=== PATIENT | male | born 1960 | race Caucasian/White ===

== ENCOUNTER 2016-11-13 00:35 | Emergency (ER) | payer SELFPAY ==
[~2016-11-13] VITALS: Ht 167.6 cm; Wt 70.5 kg
[2016-11-13 00:45] VITALS: BP 172/111; PULSE 117; TEMP 98.4
[2016-11-13] MEDS ORDERED: TOPROL XL 50MG50 MG PO (01:10)
[2016-11-13] MEDS ORDERED: ULTRAM 50MG TAB50 MG PO (01:24)
[2016-11-13] MEDS ORDERED: PEN-VEE K500 MG PO (01:24)
== END 2016-11-13 01:33 | disposition home or self-care (01) ==
LOC: COL.ER 00:35
DX: K08.89 Other specified disorders of teeth and supporting structures (principal); K05.30 Chronic periodontitis, unspecified; I11.0 Hypertensive heart disease with heart failure; I50.9 Heart failure, unspecified; J44.9 Chronic obstructive pulmonary disease, unspecified; F17.200 Nicotine dependence, unspecified, uncomplicated

== ENCOUNTER 2016-11-16 12:04 | Observation (INO) | payer SELFPAY ==
[~2016-11-16] VITALS: Ht 167.6 cm; Wt 76.2 kg
[2016-11-16] VITALS (481 sets, daily range): BP systolic 126–147; BP diastolic 72–101; PULSE 87–102; TEMP 97–97.5; O2SAT 95–100
[~2016-11-16 12:04] MED LIST: PEN-VEE K500 MG PO; TOPROL XL 50MG50 MG PO; ULTRAM 50MG TAB50 MG PO
[2016-11-16 12:31] LABS: BASO % 0.2 % (0.0-2.0); EOS # 0.1 (0.0-0.7); GRAN # 9.2 (1.4-6.5); GRAN % 74.9 % (42.2-75.2); HEMOGLOBIN 14.3 g/dl (13.5-18.0); LYMPH # 2.2 (1.2-3.4); LYMPH % 17.8 % (20.0-51.0); MEAN CELL VOLUME 92 fl (80.0-100.0); MEAN CORPUSCULAR HEMOGLOBIN 30 pg (27.0-31.0); MEAN CORPUSCULAR HGB CONC 33 g/dl (33.0-37.0); MEAN PLATELET VOLUME 9.4 fl (7.4-10.4); MONO # 0.7 (0.1-0.6); MONO % 5.8 % (1.7-9.3); PLATELET COUNT 449 K/mm3 (130-400); REDCELL DISTRIBUTION WIDTH-CV 14.7 % (11.5-14.5); WHITE BLOOD COUNT 12.3 K/mm3 (4.8-10.8)
[2016-11-16 12:40] LABS: PROTHROMBIN TIME 11.5 SECONDS (9.7-12.8)
[2016-11-16 12:42] LABS: PARTIAL THROMBOPLASTIN TIME 31.2 SECONDS (26.0-37.0)
[2016-11-16 12:47] LABS: ADJUSTED CALCIUM 9.2 mg/dL (8.4-10.2); ALBUMIN 4.1 gm/dL (3.5-5.0); BILIRUBIN,TOTAL 0.8 mg/dL (0.0-1.0); CALCIUM 9.3 mg/dL (8.4-10.2); CREATININE, serum 0.91 mg/dL (0.66-1.25); POTASSIUM 4.1 mmol/L (3.4-5.0)
[2016-11-16 13:03] LABS: TROPONIN-I 1.19 ng/mL (0.000-0.034)
[2016-11-16 21:47] LABS: INR 1.1 (0.8-3.0); PROTHROMBIN TIME 12.2 SECONDS (9.7-12.8)
[2016-11-16 21:50] LABS: PARTIAL THROMBOPLASTIN TIME 31.3 SECONDS (26.0-37.0)
[2016-11-17] VITALS (922 sets, daily range): BP systolic 122–133; BP diastolic 88–92; PULSE 86–94; TEMP 97.1–98.1; O2SAT 87–100
[2016-11-17 04:11] LABS: BASO % 0.2 % (0.0-2.0); EOS # 0.1 (0.0-0.7); EOS % 0.7 % (0-4.0); GRAN # 11.7 (1.4-6.5); GRAN % 79.8 % (42.2-75.2); LYMPH # 1.7 (1.2-3.4); LYMPH % 11.9 % (20.0-51.0); MEAN CELL VOLUME 91 fl (80.0-100.0); MEAN CORPUSCULAR HGB CONC 34 g/dl (33.0-37.0); MEAN PLATELET VOLUME 9.1 fl (7.4-10.4); MONO % 6.9 % (1.7-9.3); PLATELET COUNT 393 K/mm3 (130-400); RED BLOOD COUNT 3.97 M/mm3 (4.20-5.60); REDCELL DISTRIBUTION WIDTH-CV 14.8 % (11.5-14.5); WHITE BLOOD COUNT 14.7 K/mm3 (4.8-10.8)
[2016-11-17 04:12] LABS: HEMATOCRIT 36.3 % (42.0-52.0); HEMOGLOBIN 12.3 g/dl (13.5-18.0); MEAN CORPUSCULAR HEMOGLOBIN 31 pg (27.0-31.0)
[2016-11-17 04:54] LABS: CALCIUM 8.6 mg/dL (8.4-10.2); CREATININE, serum 0.77 mg/dL (0.66-1.25); MAGNESIUM 1.7 mg/dL (1.6-2.3)
[2016-11-17 05:22] LABS: TROPONIN-I 1.73 ng/mL (0.000-0.034)
[2016-11-17] MEDS ORDERED: LIPITOR20 MG PO (12:52)
[2016-11-17] MEDS ORDERED: ASPIRIN E.C. 8181 MG PO (12:53)
[2016-11-17] MEDS ORDERED: TOPROL XL 50MG50 MG PO (12:53)
[2016-11-17] MEDS ORDERED: ZESTRIL 20MG TA20 MG PO (12:53)
== END 2016-11-17 18:00 | disposition short-term general hospital (02) ==
LOC: COL.ER 12:04 → ICU 13:13
PROVIDERS: Emergency Medicine; Family Medicine; Internal Medicine Cardiovascular Disease
DX: I21.4 Non-ST elevation (NSTEMI) myocardial infarction (principal); T82.855A Stenosis of coronary artery stent, initial encounter; I50.20 Unspecified systolic (congestive) heart failure; Z91.14 Patient's other noncompliance with medication regimen; I25.10 Atherosclerotic heart disease of native coronary artery without angina pectoris; J44.9 Chronic obstructive pulmonary disease, unspecified; F17.210 Nicotine dependence, cigarettes, uncomplicated; I10 Essential (primary) hypertension; Z86.73 Personal history of transient ischemic attack (TIA), and cerebral infarction without residual deficits; E78.00 Pure hypercholesterolemia, unspecified; K02.9 Dental caries, unspecified
CPT/HCPCS: 99223-AI; 99233-AI; 99239; C1760; C1894; G0378; J0360; J1644; J2250; J2270; J2405; J3010; Q9967

== ENCOUNTER → 2017-04-13 | Outpatient (REF) ==
[~2017-04-13] MED LIST changes: +ASPIRIN E.C. 8181 MG PO; +LIPITOR20 MG PO; +ZESTRIL 20MG TA20 MG PO
[2017-04-13 19:56] LABS: CHLAMYDIA/TRACH by PCR Male NOT DETECTED; Neisseria Gon by PCR Male NOT DETECTED
== END ==
LOC: ZLAB.WCH 18:09
PROVIDERS: Physician Assistant
DX: Z01.89 Encounter for other specified special examinations (principal)

== ENCOUNTER 2017-12-13 14:34 | Inpatient (IN) | payer MEDICAID ==
[~2017-12-13] VITALS: Ht 167.6 cm; Wt 78.8 kg
[2017-12-13 15:04] LABS: BASO % 0.3 % (0.0-2.0); EOS # 0.3 (0.0-0.7); EOS % 2.6 % (0-4.0); GRAN # 7.2 (1.4-6.5); GRAN % 61.7 % (42.2-75.2); HEMATOCRIT 42.8 % (42.0-52.0); HEMOGLOBIN 14.6 g/dl (13.5-18.0); LYMPH # 3.2 (1.2-3.4); LYMPH % 27.1 % (20.0-51.0); MEAN CELL VOLUME 94 fl (80.0-100.0); MEAN CORPUSCULAR HEMOGLOBIN 32 pg (27.0-31.0); MEAN CORPUSCULAR HGB CONC 34 g/dl (33.0-37.0); MONO # 0.9 (0.1-0.6); MONO % 8.1 % (1.7-9.3); PLATELET COUNT 359 K/mm3 (130-400); RED BLOOD COUNT 4.54 M/mm3 (4.20-5.60); REDCELL DISTRIBUTION WIDTH-CV 12.9 % (11.5-14.5)
[2017-12-13 15:16] LABS: ALANINE AMINOTRANSFERASE 27 U/L (21-72); ALKALINE PHOSPHATASE 92 U/L (50-136); ANION GAP 12 mmol/L (7-16); AST,SGOT 21 U/L (15-37); BILIRUBIN,TOTAL 0.3 mg/dL (0.0-1.0); BLOOD UREA NITROGEN 18 mg/dL (9-20); CALCIUM 9.2 mg/dL (8.4-10.2); CARBON DIOXIDE 28 mmol/L (22-30); CHLORIDE 102 mmol/L (98-107); CREATININE, serum 1.09 mg/dL (0.66-1.25); GLUCOSE 141 mg/dL (74-106); SODIUM 142 mmol/L (137-145); TOTAL PROTEIN 7.7 gm/dL (6.4-8.2)
[2017-12-13 15:33] LABS: TROPONIN-I < 0.012 ng/mL (0.000-0.034)
[2017-12-13 16:22] LABS: INR 0.9 (0.8-3.0); PROTHROMBIN TIME 10.7 SECONDS (9.7-12.8)
[2017-12-13] MEDS ORDERED: PLAVIX 75MG TAB75 MG PO (17:22)
[2017-12-13] MEDS ORDERED: COREG12.5 MG PO (17:24)
[2017-12-13 18:25] VITALS: BP 146/79; PULSE 67; TEMP 97.7
[2017-12-13 19:41] VITALS: BP 126/79; PULSE 70; TEMP 97.8
[2017-12-14] VITALS (15 sets, daily range): BP systolic 126–158; BP diastolic 70–93; PULSE 66–94; TEMP 97.7–98.8
[2017-12-14 07:22] LABS: BASO % 0.2 % (0.0-2.0); EOS # 0.3 (0.0-0.7); EOS % 2.2 % (0-4.0); GRAN # 8.5 (1.4-6.5); GRAN % 63.5 % (42.2-75.2); HEMATOCRIT 37.8 % (42.0-52.0); HEMOGLOBIN 12.7 g/dl (13.5-18.0); LYMPH # 3.6 (1.2-3.4); MEAN CELL VOLUME 94 fl (80.0-100.0); MEAN CORPUSCULAR HEMOGLOBIN 32 pg (27.0-31.0); MEAN CORPUSCULAR HGB CONC 34 g/dl (33.0-37.0); MEAN PLATELET VOLUME 8.8 fl (7.4-10.4); MONO # 0.9 (0.1-0.6); MONO % 6.8 % (1.7-9.3); PLATELET COUNT 298 K/mm3 (130-400); RED BLOOD COUNT 4.02 M/mm3 (4.20-5.60); REDCELL DISTRIBUTION WIDTH-CV 13.1 % (11.5-14.5)
[2017-12-14 07:31] LABS: CALCIUM 8.4 mg/dL (8.4-10.2); CREATININE, serum 0.89 mg/dL (0.66-1.25); POTASSIUM 4.1 mmol/L (3.4-5.0)
[2017-12-15] VITALS: BP 127/77; PULSE 85; TEMP 98
[2017-12-15 04:24] VITALS: BP 142/71; PULSE 85; TEMP 97.5
[2017-12-15] MEDS ORDERED: PLAVIX 75MG TAB75 MG PO ×2 (07:37→09:12)
[2017-12-15] MEDS ORDERED: ASPIRIN E.C. 8181 MG PO (07:38)
[2017-12-15 07:42] VITALS: BP 129/76; PULSE 87; TEMP 97.7
[2017-12-15] MEDS ORDERED: LIPITOR 40MG TA40 MG PO (08:36)
[2017-12-15] MEDS ORDERED: COREG12.5 MG PO (08:45)
[2017-12-15] MEDS ORDERED: ZESTRIL 20MG TA20 MG PO (08:45)
== END 2017-12-15 11:35 | disposition home or self-care (01) | DRG 247 ==
LOC: COL.ER 14:34 → MEDICAL 17:26
PROVIDERS: Emergency Medicine; Nurse Practitioner
PROC: B2111ZZ Fluoroscopy of Multiple Coronary Arteries using Low Osmolar Contrast (ICD-10-PCS; principal; 2017-12-14)
PROC: 027034Z Dilation of Coronary Artery, One Artery with Drug-eluting Intraluminal Device, Percutaneous Approach (ICD-10-PCS; 2017-12-14)
PROC: 4A023N7 Measurement of Cardiac Sampling and Pressure, Left Heart, Percutaneous Approach (ICD-10-PCS; 2017-12-14)
DX: I25.110 Atherosclerotic heart disease of native coronary artery with unstable angina pectoris (principal); I50.22 Chronic systolic (congestive) heart failure; I11.0 Hypertensive heart disease with heart failure; I25.5 Ischemic cardiomyopathy; Z95.5 Presence of coronary angioplasty implant and graft; J44.9 Chronic obstructive pulmonary disease, unspecified; F17.210 Nicotine dependence, cigarettes, uncomplicated; Z91.14 Patient's other noncompliance with medication regimen; Z86.73 Personal history of transient ischemic attack (TIA), and cerebral infarction without residual deficits
CPT/HCPCS: 99222-AI; 99239; C1725; C1769; C1874; C1887; C9600; J0360; J1644; J2250; J3010; J7030

== ENCOUNTER 2017-12-15 19:27 | Emergency (ER) | payer MEDICAID ==
[~2017-12-15] VITALS: Ht 167.6 cm; Wt 72.7 kg
[~2017-12-15 19:27] MED LIST changes: +COREG12.5 MG PO; +LIPITOR 40MG TA40 MG PO; +PLAVIX 75MG TAB75 MG PO
[2017-12-15 19:32] VITALS: TEMP 98
[2017-12-15 19:54] LABS: BASO % 0.2 % (0.0-2.0); EOS # 0.3 (0.0-0.7); GRAN # 7.4 (1.4-6.5); GRAN % 58.3 % (42.2-75.2); HEMATOCRIT 41.2 % (42.0-52.0); HEMOGLOBIN 14.2 g/dl (13.5-18.0); MEAN CELL VOLUME 93 fl (80.0-100.0); MEAN CORPUSCULAR HEMOGLOBIN 32 pg (27.0-31.0); MEAN CORPUSCULAR HGB CONC 35 g/dl (33.0-37.0); MONO % 8.1 % (1.7-9.3); PLATELET COUNT 370 K/mm3 (130-400); RED BLOOD COUNT 4.42 M/mm3 (4.20-5.60); REDCELL DISTRIBUTION WIDTH-CV 13.1 % (11.5-14.5)
[2017-12-15 19:57] LABS: INR 0.9 (0.8-3.0); PROTHROMBIN TIME 10.6 SECONDS (9.7-12.8)
[2017-12-15 20:00] LABS: PARTIAL THROMBOPLASTIN TIME 38.8 SECONDS (26.0-37.0)
[2017-12-15 20:02] LABS: ALBUMIN 3.9 gm/dL (3.5-5.0); BILIRUBIN,TOTAL 0.4 mg/dL (0.0-1.0); CALCIUM 9.2 mg/dL (8.4-10.2); CREATININE, serum 1.05 mg/dL (0.66-1.25); POTASSIUM 4.1 mmol/L (3.4-5.0); TOTAL PROTEIN 7.6 gm/dL (6.4-8.2)
[2017-12-15 20:18] LABS: TROPONIN-I 0.289 ng/mL (0.000-0.034)
[2017-12-15 21:10] VITALS: BP 136/87; PULSE 85
== END 2017-12-15 21:21 | disposition other institution (70) ==
LOC: COL.ER 19:27
PROVIDERS: Emergency Medicine
DX: I24.9 Acute ischemic heart disease, unspecified (principal); E78.5 Hyperlipidemia, unspecified; I10 Essential (primary) hypertension; F17.210 Nicotine dependence, cigarettes, uncomplicated; Z95.5 Presence of coronary angioplasty implant and graft; Z79.82 Long term (current) use of aspirin; Z82.49 Family history of ischemic heart disease and other diseases of the circulatory system
CPT/HCPCS: J1644; J2405; J3010

== ENCOUNTER 2018-07-03 23:21 | Inpatient (IN) | payer MEDICAID ==
[~2018-07-03] VITALS: Ht 170.2 cm; Wt 81.2 kg
[2018-07-03 23:38] LABS: BASO # 0.1 (0.0-0.2); BASO % 0.3 % (0.0-2.0); EOS # 0.3 (0.0-0.7); EOS % 1.8 % (0-4.0); GRAN % 71.8 % (42.2-75.2); HEMATOCRIT 44.1 % (42.0-52.0); HEMOGLOBIN 14.7 g/dl (13.5-18.0); LYMPH # 2.7 (1.2-3.4); LYMPH % 17.9 % (20.0-51.0); MEAN CELL VOLUME 96 fl (80.0-100.0); MEAN CORPUSCULAR HEMOGLOBIN 32 pg (27.0-31.0); MEAN CORPUSCULAR HGB CONC 33 g/dl (33.0-37.0); MEAN PLATELET VOLUME 9.1 fl (7.4-10.4); MONO # 1.2 (0.1-0.6); MONO % 7.9 % (1.7-9.3); PLATELET COUNT 262 K/mm3 (130-400); RED BLOOD COUNT 4.59 M/mm3 (4.20-5.60); REDCELL DISTRIBUTION WIDTH-CV 13.4 % (11.5-14.5)
[2018-07-03 23:52] LABS: LACTIC ACID 1.7 mmol/L (0.4-2.0)
[2018-07-03 23:54] LABS: ALANINE AMINOTRANSFERASE 28 U/L (21-72); ALBUMIN 3.8 gm/dL (3.5-5.0); ALKALINE PHOSPHATASE 93 U/L (50-136); ANION GAP 7 mmol/L (7-16); AST,SGOT 21 U/L (15-37); BILIRUBIN,TOTAL 0.6 mg/dL (0.0-1.0); BLOOD UREA NITROGEN 17 mg/dL (9-20); CARBON DIOXIDE 29 mmol/L (22-30); CHLORIDE 102 mmol/L (98-107); CREATININE, serum 1.54 mg/dL (0.66-1.25); GLUCOSE 139 mg/dL (74-106); LIPASE 190 U/L (23-300); POTASSIUM 5.1 mmol/L (3.4-5.0); SODIUM 138 mmol/L (137-145); TOTAL PROTEIN 7.1 gm/dL (6.4-8.2)
[2018-07-03 23:58] LABS: ALCOHOL(ethanol),MEDICAL < 10 mg/dL
[2018-07-04] VITALS (924 sets, daily range): BP systolic 119–133; BP diastolic 60–85; PULSE 64–106; TEMP 97.4–98.6; O2SAT 89–100
[2018-07-04 00:04] LABS: TROPONIN-I 0.021 ng/mL (0.000-0.035)
[2018-07-04 00:25] LABS: COLLECTION METHOD CATHETER
[2018-07-04] MEDS ORDERED: LEXAPRO 10MG10 MG PO (00:29)
[2018-07-04] MEDS ORDERED: ZESTRIL30 MG PO (00:29)
[2018-07-04] MEDS ORDERED: NORVASC 5MG5 MG/TAB PO (00:30)
[2018-07-04] MEDS ORDERED: NITROSTAT0.4 MG/TAB SL (00:30)
[2018-07-04 00:40] LABS: MUCOUS Present /lpf; PH 5 (5-8); SQUAMOUS EPITHELIAL 0-2 /hpf; URINE APPEARANCE Cloudy; URINE BACTERIA None Seen /hpf; URINE BILIRUBIN Negative (NEGATIVE); URINE BLOOD 3+ (NEGATIVE); URINE COLOR Amber; URINE GLUCOSE Negative (NEGATIVE); URINE KETONE Negative (NEGATIVE); URINE LEUKOCYTE ESTERASE 1+ (NEGATIVE); URINE NITRATE Negative (NEGATIVE); URINE PROTEIN(semi-quant) 2+ (NEGATIVE); URINE RBC >50 /hpf
[2018-07-04 00:46] LABS: TRICYCLIC ANTIDEPRESS URINE POSITIVE
[2018-07-04] MEDS ORDERED: ALDACTONE 25MG25 M1 PO (02:09)
[2018-07-04] MEDS ORDERED: LASIX 40MG TABL40 MG PO (02:10)
[2018-07-04] MEDS ORDERED: ASPIRIN E.C. 8181 MG PO (02:15)
[2018-07-04 05:17] LABS: ACETAMINOPHEN < 10 ug/mL (10-30); SALICYLATE < 1.0 mg/dL
[2018-07-04 07:04] LABS: BASO % 0.3 % (0.0-2.0); EOS # 0.2 (0.0-0.7); EOS % 1.5 % (0-4.0); GRAN # 7.5 (1.4-6.5); GRAN % 63.2 % (42.2-75.2); HEMATOCRIT 39.6 % (42.0-52.0); HEMOGLOBIN 13.2 g/dl (13.5-18.0); LYMPH # 3.2 (1.2-3.4); LYMPH % 27.5 % (20.0-51.0); MEAN CELL VOLUME 95 fl (80.0-100.0); MEAN CORPUSCULAR HEMOGLOBIN 32 pg (27.0-31.0); MEAN CORPUSCULAR HGB CONC 33 g/dl (33.0-37.0); MONO # 0.9 (0.1-0.6); MONO % 7.2 % (1.7-9.3); PLATELET COUNT 217 K/mm3 (130-400); RED BLOOD COUNT 4.16 M/mm3 (4.20-5.60); REDCELL DISTRIBUTION WIDTH-CV 13.5 % (11.5-14.5)
--- NOTE | 2018-07-04 07:14 | NUR ---
0225 - RECEIVED REPORT FROM PATRICK CHAPARRO. 0240 - PT ARRIVED IN UNIT VIA STRETCHER, ABLE TO SCOOT HIMSELF FROM STRETCHER TO BED. ALERT AND ORIENTED X3, JUST CONFUSED OF WHY IS HE IN THE HOSPITAL BUT EASY TO REORIENT.
[2018-07-04 07:15] LABS: ANION GAP 3 mmol/L (7-16); BLOOD UREA NITROGEN 16 mg/dL (9-20); CALCIUM 7.8 mg/dL (8.4-10.2); CARBON DIOXIDE 26 mmol/L (22-30); CHLORIDE 110 mmol/L (98-107); GLUCOSE 96 mg/dL (74-106); MAGNESIUM 1.8 mg/dL (1.6-2.3); POTASSIUM 4.5 mmol/L (3.4-5.0); SODIUM 140 mmol/L (137-145)
--- NOTE | 2018-07-04 07:15 | NUR ---
Bedside report received from PATRICK Ansari. Patient currently lying in bed and sleeping. Recently hypotensive, fluid challenge administered, and VS now WNL. NS infusing at 125. Care taken over at this time. Will continue to monitor.
[2018-07-04 07:32] LABS: TROPONIN-I < 0.012 ng/mL (0.000-0.035)
--- NOTE | 2018-07-04 10:38 | NUR ---
SW met with the patient to discuss discharge plan. The patient reports that he lives alone in [place]. He states that his girlfriend, Michelle, and him broke up recently and that his mother lives in a usp in [place]. He reports that he has two daughters, Reyna and Marnie. He states Reyna lives in [place] and that Marnie lives in [place]. He reports independence with ADLs and does not use any DME. The patient reports he receives primary care at the [facility] across from [facility]. He receives his medications at the [facility] and he reports no difficulties obtaining his meds. The patient does not have advanced directives and he was not interested in completing them at this time. SW attempted to contact the patient's friend (Jayleen Preciado) and his daughter (Reyna). Their numbers were both disconnected. SW to continue to follow.
--- NOTE | 2018-07-04 11:00 | NUR ---
PATIENT ASKS WHY HE IS HERE AND WHEN HE CAN GO HOME. PLAN OF CARE DISCUSSED. PATIENT VERBALIZES UNDERSTANDING.
--- NOTE | 2018-07-04 15:42 | NUR ---
The patient provided SW with his friend, Jayleen Preciado, phone number ([phone]). GREYSON contacted Jayleen. Jayleen reports that she lives with the patient, along with her son. She reports that her relationship to the patient is girlfriend or a common law marriage. Jayleen confirmed that the patient's mother is now at a skilled nursing in [place]. Jayleen reported concerns with the patient having more seizures lately. Jayleen reports that she also plans to reach out to the patient's daughter, Reyna, to inform her of the patient being hospitalized. GREYSON informed the patient's midlevel of the recent seizures and will continue to follow.
--- NOTE | 2018-07-04 16:30 | NUR ---
IVF STOPPED, PER HOSPITALIST ORDER. WILL MONITOR BLOOD PRESSURES CLOSELY
--- NOTE | 2018-07-04 19:26 | NUR ---
REPORT GIVEN TO PATRICK SULLIVAN
[2018-07-05] VITALS (344 sets, daily range): BP systolic 110–153; BP diastolic 68–89; PULSE 81–92; TEMP 97.5–98.4; O2SAT 91–100
--- NOTE | 2018-07-05 03:06 | NUR ---
PT'S BP AT 187/108, ASYMPTOMATIC. THIS RN CALLED [facility] TO NOTIFY, NO NEW ORDERS OF THIS TIME. WILL CONTINUE TO MONITOR.
[2018-07-05 06:40] LABS: BASO % 0.3 % (0.0-2.0); EOS # 0.3 (0.0-0.7); EOS % 2.7 % (0-4.0); GRAN # 6.3 (1.4-6.5); GRAN % 55.3 % (42.2-75.2); HEMATOCRIT 42.4 % (42.0-52.0); HEMOGLOBIN 14.4 g/dl (13.5-18.0); LYMPH # 3.7 (1.2-3.4); LYMPH % 32.5 % (20.0-51.0); MEAN CELL VOLUME 94 fl (80.0-100.0); MEAN CORPUSCULAR HEMOGLOBIN 32 pg (27.0-31.0); MEAN CORPUSCULAR HGB CONC 34 g/dl (33.0-37.0); MEAN PLATELET VOLUME 9.4 fl (7.4-10.4); MONO % 8.9 % (1.7-9.3); PLATELET COUNT 248 K/mm3 (130-400); RED BLOOD COUNT 4.53 M/mm3 (4.20-5.60); REDCELL DISTRIBUTION WIDTH-CV 13.5 % (11.5-14.5)
[2018-07-05 07:01] LABS: CALCIUM 8.7 mg/dL (8.4-10.2); CREATININE, serum 0.82 mg/dL (0.66-1.25); POTASSIUM 4.1 mmol/L (3.4-5.0)
--- NOTE | 2018-07-05 07:15 | NUR ---
Report received from PATRICK Ansari.
--- NOTE | 2018-07-05 08:00 | NUR ---
Assessment completed. Pt resting, easily arousable. Discussed plan of care today r/t MRI and EEG. Pt c/o of some discomfort with teeth. Waiting on orajel from pharmacy. Call light in reach.
--- NOTE | 2018-07-05 11:00 | NUR ---
Pt to MRI via wheelchair.
--- NOTE | 2018-07-05 11:50 | NUR ---
Pt back from MRI to room. Pt in bed ordering lunch. Call light in reach. Vital signs stable. No changes with assessment.
--- NOTE | 2018-07-05 12:52 | NUR ---
SW attended clinical rounds. The patient is to have a MRI and EEG and will also transfer up to the floor today, 07/05. SW and GREYSON student then followed up with the patient to discuss the patient's drug use and treatment options. The patient reports that he is not interested in treatment and does not plan to stop using. The patient states that he plans to return home upon discharge. SW to continue to follow.
--- NOTE | 2018-07-05 13:00 | NUR ---
facility maintenance technician at bedside.
--- NOTE | 2018-07-05 17:50 | NUR ---
Report given to PATRICK Law and pt transferred to room 315 via wheelchair. Pt walked to bed with standby assist. Call light in reach. PATRICK Law notified of pt's arrival.
--- NOTE | 2018-07-05 17:54 | NUR ---
Pt up to medical floor from ICU. Pt alert and oriented. Pt rates pain 5/10 in teeth and pt manageds with PRN orajel. Pt denies SOB. Pt placed on seizure and fall precautions. Pt SBA. Pt lungs clear. Pt on telemetry. Pt has call light in reach and denies needs. Pt finished his supper after arriving to supper without issue. Meds reviewed with patient.
--- NOTE | 2018-07-05 19:17 | NUR ---
Pt resting in bed with precautions in place and unlabored respirations. Report given to Yana NGUYEN. Pt has call light in reach.
--- NOTE | 2018-07-07 13:56 | NUR ---
Due to the hospitalist's concerns of the patient not abiding by seizure precautions, GREYSON contacted Dary, APS Worker, with [employer]. GREYSON was advised by that along with making a APS report, to also notify the police. GREYSON notified [facility] Department and they were to contact the hospitalist to make the report. GREYSON updated the hospitalist. GREYSON made a APS report. APS intake ID#[id number].
== END 2018-07-06 11:50 | disposition home or self-care (01) | DRG 918 ==
LOC: COL.ER 23:21 → ICU 07-04 01:02 → MEDICAL 07-05 18:16
PROVIDERS: Emergency Medicine; Internal Medicine Pulmonary Disease; Nurse Practitioner; Nurse Practitioner Family
DX: T50.991A Poisoning by other drugs, medicaments and biological substances, accidental (unintentional), initial encounter (principal); N39.0 Urinary tract infection, site not specified; I50.22 Chronic systolic (congestive) heart failure; N17.9 Acute kidney failure, unspecified; I95.2 Hypotension due to drugs; I25.10 Atherosclerotic heart disease of native coronary artery without angina pectoris; Z95.5 Presence of coronary angioplasty implant and graft; Z86.73 Personal history of transient ischemic attack (TIA), and cerebral infarction without residual deficits; F17.200 Nicotine dependence, unspecified, uncomplicated; G40.409 Other generalized epilepsy and epileptic syndromes, not intractable, without status epilepticus; F15.10 Other stimulant abuse, uncomplicated; Z91.19 Patient's noncompliance with other medical treatment and regimen
CPT/HCPCS: 99223-AI; 99233-AI; 99239; A4216; A9585; G0378; J0360; J0696; J1644; J2310; J2543; J7030; J7120

== ENCOUNTER 2018-10-04 17:00 | Emergency (ER) | payer MEDICAID ==
[~2018-10-04] VITALS: Ht 167.6 cm; Wt 72.7 kg
[~2018-10-04 17:00] MED LIST changes: +ALDACTONE 25MG25 M1 PO; +LASIX 40MG TABL40 MG PO; +LEXAPRO 10MG10 MG PO; +NITROSTAT0.4 MG/TAB SL; +NORVASC 5MG5 MG/TAB PO; +ZESTRIL30 MG PO
[2018-10-04 17:16] VITALS: BP 185/97; TEMP 98.6
[2018-10-04] MEDS ORDERED: AMOXICILLIN 8751 TAB PO (18:18)
[2018-10-04 18:29] VITALS: PULSE 92
== END 2018-10-04 18:31 | disposition home or self-care (01) ==
LOC: COL.ER 17:00
DX: S61.452A Open bite of left hand, initial encounter (principal); I10 Essential (primary) hypertension; E78.00 Pure hypercholesterolemia, unspecified; Z23 Encounter for immunization; Z79.02 Long term (current) use of antithrombotics/antiplatelets; Z79.82 Long term (current) use of aspirin; W54.0XXA Bitten by dog, initial encounter; Y92.009 Unspecified place in unspecified non-institutional (private) residence as the place of occurrence of the external cause

== ENCOUNTER 2018-11-02 22:40 | Inpatient (IN) | payer MEDICAID ==
[~2018-11-02] VITALS: Ht 167.6 cm; Wt 80.0 kg
[~2018-11-02 22:40] MED LIST changes: +AMOXICILLIN 8751 TAB PO
[2018-11-02 22:58] LABS: BASO % 0.3 % (0.0-2.0); EOS # 0.4 (0.0-0.7); EOS % 3.1 % (0-4.0); GRAN % 48.2 % (42.2-75.2); HEMATOCRIT 40.6 % (42.0-52.0); HEMOGLOBIN 13.7 g/dl (13.5-18.0); LYMPH # 4.7 (1.2-3.4); LYMPH % 38.2 % (20.0-51.0); MEAN CELL VOLUME 95 fl (80.0-100.0); MEAN CORPUSCULAR HEMOGLOBIN 32 pg (27.0-31.0); MEAN CORPUSCULAR HGB CONC 34 g/dl (33.0-37.0); MEAN PLATELET VOLUME 8.9 fl (7.4-10.4); MONO # 1.2 (0.1-0.6); PLATELET COUNT 302 K/mm3 (130-400); RED BLOOD COUNT 4.27 M/mm3 (4.20-5.60); REDCELL DISTRIBUTION WIDTH-CV 13.3 % (11.5-14.5)
[2018-11-02 23:02] LABS: INR 0.9 (0.8-3.0); PROTHROMBIN TIME 10.5 SECONDS (9.7-12.8)
[2018-11-02 23:04] LABS: PARTIAL THROMBOPLASTIN TIME 31.2 SECONDS (26.0-37.0)
[2018-11-02 23:08] LABS: ALANINE AMINOTRANSFERASE 14 U/L (21-72); ALBUMIN 3.9 gm/dL (3.5-5.0); ALKALINE PHOSPHATASE 84 U/L (50-136); ANION GAP 10 mmol/L (7-16); AST,SGOT 24 U/L (15-37); BILIRUBIN,TOTAL 0.3 mg/dL (0.0-1.0); BLOOD UREA NITROGEN 20 mg/dL (9-20); CALCIUM 9.5 mg/dL (8.4-10.2); CARBON DIOXIDE 25 mmol/L (22-30); CHLORIDE 107 mmol/L (98-107); CREATININE, serum 0.97 (0.66-1.25); GLUCOSE 99 mg/dL (74-106); POTASSIUM 3.9 mmol/L (3.4-5.0); SODIUM 142 mmol/L (137-145); TOTAL PROTEIN 7.4 gm/dL (6.4-8.2)
[2018-11-02 23:20] LABS: TROPONIN-I < 0.012 ng/mL (0.000-0.035)
[2018-11-03] VITALS (1303 sets, daily range): BP systolic 111–165; BP diastolic 57–91; PULSE 53–94; TEMP 97.6–98.8; O2SAT 80–100
--- NOTE | 2018-11-03 00:15 | NUR ---
Report called over from ED by PATRICK Castle. Patient will be brought over soon.
--- NOTE | 2018-11-03 00:30 | NUR ---
Patient arrives at this time via ED cart with belongings. Patient transfers self to unit bed with some mild dizziness on standing. Patient rates pain in his midepigastric region a 1/10 with the nitro going at 15mcg. He is alert and oriented. Patient mumbles when he speaks, so he is a little hard to understand. Admission assessment complete. Lungs are clear bilaterally in all lobes. HR and rhythm are regular with normal S1 and S2. Patient does get bradycardic into the 50's when resting. BP's are stable in the 100-130's systolic. Bowel sounds are active x4. Patient does have complaints of mild nausea, has emesis bag at bedside. Patient's daughter and girlfriend have gone home for the night and will be back in the morning. Patient did bring his home medications with him. Verified in the med rec. Oriented patient to unit and room. Patient has no further needs at this time. Will continue to monitor. Call light within reach.
--- NOTE | 2018-11-03 00:30 | NUR ---
Patient has Nitro started in the ED. Brought over at 15mcg/min or 4.5ml.Nitro will remain at this dose for now. Patient also on Heparin at 900u/hr or 9ml. Will continue at that dose. Hepxa was not drawn prior to start of heparin. Will have one drawn.
--- NOTE | 2018-11-03 01:30 | NUR ---
REYES Maldonado at this bedside at this time.
--- NOTE | 2018-11-03 04:00 | NUR ---
Patient asleep, awakens to noise in the room. Vitals have remained stable. Patient continues to have some discomfort in the mid epigastric region of his abdomen, rated 1/10. Patient has no further needs at this time. Will continue to monitor. Call light within reach.
[2018-11-03 06:02] LABS: BASO % 0.3 % (0.0-2.0); EOS # 0.2 (0.0-0.7); EOS % 1.5 % (0-4.0); GRAN # 7.4 (1.4-6.5); GRAN % 59.9 % (42.2-75.2); HEMOGLOBIN 12.2 g/dl (13.5-18.0); LYMPH # 3.7 (1.2-3.4); LYMPH % 30.2 % (20.0-51.0); MEAN CELL VOLUME 96 fl (80.0-100.0); MEAN CORPUSCULAR HEMOGLOBIN 32 pg (27.0-31.0); MEAN CORPUSCULAR HGB CONC 34 g/dl (33.0-37.0); MEAN PLATELET VOLUME 9.1 fl (7.4-10.4); MONO % 7.9 % (1.7-9.3); PLATELET COUNT 270 K/mm3 (130-400); RED BLOOD COUNT 3.78 M/mm3 (4.20-5.60); REDCELL DISTRIBUTION WIDTH-CV 13.2 % (11.5-14.5)
[2018-11-03 06:07] LABS: HEMATOCRIT 36.3 % (42.0-52.0)
[2018-11-03 06:18] LABS: ALANINE AMINOTRANSFERASE 22 U/L (21-72); ALBUMIN 3.3 gm/dL (3.5-5.0); ALKALINE PHOSPHATASE 79 U/L (50-136); ANION GAP 7 mmol/L (7-16); AST,SGOT 23 U/L (15-37); BILIRUBIN,TOTAL 0.2 mg/dL (0.0-1.0); BLOOD UREA NITROGEN 18 mg/dL (9-20); CALCIUM 8.5 mg/dL (8.4-10.2); CARBON DIOXIDE 27 mmol/L (22-30); CHLORIDE 108 mmol/L (98-107); CREATININE, serum 0.81 (0.66-1.25); GLUCOSE 118 mg/dL (74-106); SODIUM 141 mmol/L (137-145); TOTAL PROTEIN 6.4 gm/dL (6.4-8.2)
[2018-11-03 07:21] LABS: TROPONIN-I 6 HR POST INITIAL < 0.012 ng/mL (0.000-0.034)
--- NOTE | 2018-11-03 07:21 | NUR ---
Bedside report given to PATRICK Francis and PATRICK Fallon. All lines and medications reviewed. Transfer of care at this time.
--- NOTE | 2018-11-03 08:00 | NUR ---
Shift assessment complete at this time. Plan of care reviewed at bedside with patient. Additional time taken to address any other needs or concerns. Vitals stable at this time. Pt reports 1/10 epigastric pain that is tolerable. Currenly on heparin and nitroglycerin gtts. Denies any other pain or discomfort. Bed in low position, call light within reach, will continue to monitor.
[2018-11-03 10:37] LABS: TRICYCLIC ANTIDEPRESS URINE NEGATIVE
--- NOTE | 2018-11-03 11:26 | NUR ---
Plan is to return home with DTR as care support. SW met with patient in the room. Patient reports that he lives alone and is independent prior to this stay. Patient reports that he does not have a PCP and was previously seeing one in [place]. Patient reports that use [facility] locally for his RX. Patient reports he is able to transport himself. Patient reports that use of a nebulizer prn. Patient reports his EMR contact is his DTR Dariana but denies knowing her phone number. Patient indicated that he does not have a DPOA and is not interested in setting one up right now. SW will continue to follow. Patient has not additional needs identified at this time.
--- NOTE | 2018-11-03 12:00 | NUR ---
Pt resting comfortably in bed. Reports tolerable epigastric pain and denies need for further intervention. Nitroglycerin gtt tritrated off for Lexiscan per direction of Dr. Gutierrez. Vitals stable at this time. Bed in low position, call light within reach. Will continue to monitor.
--- NOTE | 2018-11-03 16:00 | NUR ---
Pt resting comfortably in bed. Reports tolerable epigastric pain and denies any other intervention. Vitals stable. Bed in low position, call light within reach. Denies any other discomfort or concerns. Will continue to monitor.
--- NOTE | 2018-11-03 19:42 | NUR ---
Bedside report given to PATRICK De Anda.
[2018-11-04] VITALS (655 sets, daily range): BP systolic 118–152; BP diastolic 63–71; PULSE 74–87; TEMP 97.6–98.6; O2SAT 92–99
[2018-11-04 05:59] LABS: BASO % 0.2 % (0.0-2.0); EOS # 0.3 (0.0-0.7); EOS % 1.3 % (0-4.0); GRAN # 14.8 (1.4-6.5); GRAN % 77.9 % (42.2-75.2); HEMATOCRIT 39.8 % (42.0-52.0); HEMOGLOBIN 13.4 g/dl (13.5-18.0); LYMPH # 2.4 (1.2-3.4); LYMPH % 12.5 % (20.0-51.0); MEAN CELL VOLUME 96 fl (80.0-100.0); MEAN CORPUSCULAR HEMOGLOBIN 32 pg (27.0-31.0); MEAN CORPUSCULAR HGB CONC 34 g/dl (33.0-37.0); MEAN PLATELET VOLUME 9.1 fl (7.4-10.4); MONO # 1.5 (0.1-0.6); MONO % 7.7 % (1.7-9.3); PLATELET COUNT 270 K/mm3 (130-400); RED BLOOD COUNT 4.16 M/mm3 (4.20-5.60); REDCELL DISTRIBUTION WIDTH-CV 13.2 % (11.5-14.5)
[2018-11-04 06:10] LABS: CALCIUM 8.4 mg/dL (8.4-10.2); CREATININE, serum 0.77 (0.66-1.25); POTASSIUM 3.8 mmol/L (3.4-5.0)
[2018-11-04 09:32] LABS: COLLECTION METHOD CLEAN CATCH
[2018-11-04 09:43] LABS: PH 6 (5-8); SQUAMOUS EPITHELIAL None Seen /hpf; URINE APPEARANCE Clear; URINE BACTERIA Rare /hpf; URINE BILIRUBIN Negative (NEGATIVE); URINE BLOOD 3+ (NEGATIVE); URINE COLOR Colorless; URINE GLUCOSE 3+ (NEGATIVE); URINE KETONE Negative (NEGATIVE); URINE LEUKOCYTE ESTERASE 2+ (NEGATIVE); URINE NITRATE Negative (NEGATIVE); URINE PROTEIN(semi-quant) Negative (NEGATIVE); URINE RBC 0-2 /hpf; URINE UROBILINOGEN Negative (NEGATIVE); URINE WBC 20-50 /hpf
[2018-11-04] MEDS ORDERED: MACROBID 1100 MG/CAP PO (10:40)
== END 2018-11-04 11:24 | disposition home or self-care (01) | DRG 313 ==
LOC: COL.ER 22:40 → ICU 23:50 → IMCU 11-03 06:10 → ICU 11-04 11:24
PROVIDERS: Emergency Medicine; Nurse Practitioner; Physician Assistant; Student in an Organized Health Care Education/Training Program; ADMIT Internal Medicine
DX: R07.9 Chest pain, unspecified (principal); I50.22 Chronic systolic (congestive) heart failure; N39.0 Urinary tract infection, site not specified; Z95.5 Presence of coronary angioplasty implant and graft; E78.5 Hyperlipidemia, unspecified; Z86.73 Personal history of transient ischemic attack (TIA), and cerebral infarction without residual deficits; F17.210 Nicotine dependence, cigarettes, uncomplicated; Z88.5 Allergy status to narcotic agent; I11.0 Hypertensive heart disease with heart failure; Z91.14 Patient's other noncompliance with medication regimen; R30.0 Dysuria; F15.10 Other stimulant abuse, uncomplicated; I25.10 Atherosclerotic heart disease of native coronary artery without angina pectoris
CPT/HCPCS: 99222-AI; 99239; A4216; A9500; J0696; J1644; J2405; J2785; J3010; J7030

== ENCOUNTER 2020-01-08 22:15 | Observation (INO) | payer MEDICAID ==
[~2020-01-08] VITALS: Ht 167.6 cm; Wt 82.7 kg
[~2020-01-08 22:15] MED LIST changes: +MACROBID 1100 MG/CAP PO
[2020-01-08 23:02] LABS: BASO % 0.3 % (0.0-2.0); EOS # 0.2 (0.0-0.7); EOS % 1.3 % (0-4.0); GRAN # 8.2 (1.4-6.5); GRAN % 62.4 % (42.2-75.2); HEMATOCRIT 46.1 % (42.0-52.0); HEMOGLOBIN 15.8 g/dl (13.5-18.0); LYMPH # 3.4 (1.2-3.4); LYMPH % 25.6 % (20.0-51.0); MEAN CELL VOLUME 92 fl (80.0-100.0); MEAN CORPUSCULAR HEMOGLOBIN 32 pg (27.0-31.0); MEAN CORPUSCULAR HGB CONC 34 g/dl (33.0-37.0); MONO # 1.3 (0.1-0.6); MONO % 10.1 % (1.7-9.3); PLATELET COUNT 309 K/mm3 (130-400); RED BLOOD COUNT 4.99 M/mm3 (4.20-5.60); REDCELL DISTRIBUTION WIDTH-CV 13.2 % (11.5-14.5)
[2020-01-08 23:14] LABS: ALBUMIN 4.4 gm/dL (3.5-5.0); BILIRUBIN,TOTAL 0.4 mg/dL (0.0-1.0); C-REACTIVE PROTEIN 1.9 mg/dL (0.0-0.9); CALCIUM 8.9 mg/dL (8.4-10.2); CREATININE, serum 0.94 (0.66-1.25); POTASSIUM 3.9 mmol/L (3.4-5.0); TOTAL PROTEIN 8.1 gm/dL (6.4-8.2)
[2020-01-08 23:16] LABS: COLLECTION METHOD CLEAN CATCH
[2020-01-08 23:22] LABS: TROPONIN-I 0.014 ng/mL (0.000-0.035)
[2020-01-08 23:26] LABS: MUCOUS Present /lpf; PH 5 (5-8); URINE APPEARANCE Hazy; URINE BACTERIA None Seen /hpf; URINE BILIRUBIN Positive (NEGATIVE); URINE BLOOD Negative (NEGATIVE); URINE COLOR Amber; URINE GLUCOSE Negative (NEGATIVE); URINE KETONE Trace (NEGATIVE); URINE LEUKOCYTE ESTERASE 2+ (NEGATIVE); URINE NITRATE Negative (NEGATIVE); URINE PROTEIN(semi-quant) 2+ (NEGATIVE); URINE UROBILINOGEN >=4.0 mg/dL (NEGATIVE)
[2020-01-08 23:29] LABS: TRICYCLIC ANTIDEPRESS URINE NEGATIVE
[2020-01-09] VITALS (7 sets, daily range): BP systolic 126–155; BP diastolic 70–81; PULSE 69–82; TEMP 97.5–98.1
[2020-01-09] MEDS ORDERED: NORCO 325 MG-51 TAB PO (01:47)
--- NOTE | 2020-01-09 01:55 | NUR ---
Arrived to surgical floor at 0130. Assessment complete. Lungs clear. Heart sounds normal. Bowels active x4. Pulses present throughout. IV left forarm without complications. Reports 3/10 pain at this time. Orientated to surgical floor. All questions answered. Medications sent to pharmacy. Cigerettes taken out of room. Denies other needs. Call light in reach.
--- NOTE | 2020-01-09 03:44 | NUR ---
Reported 6/10 ABD pain. Denies needs. Call light in reach.
--- NOTE | 2020-01-09 06:11 | NUR ---
Patient required x1 dose of dilaudid for pain control throughout night. Otherwise uneventful night. Resting in bed this AM. Call light in reach.
--- NOTE | 2020-01-09 07:16 | NUR ---
Report given to PATRICK Palomo
--- NOTE | 2020-01-09 08:55 | NUR ---
PT RESTING IN BED. REQUESTING PAIN MEDICATION, PRN PAIN MEDS GIVEN ORDERED. IV TO LFA. PT DENIES OTHER NEEDS. PT REMAINS NPO AT THIS TIME.
--- NOTE | 2020-01-09 10:03 | NUR ---
GREYSON met with the patient to discuss discharge plan. The patient lives in [place] with a friend, Inna Todd. He reports independence with ADLs and does not have any DME. The patient states that he does not have a PCP at this time. He states that he would be interested in getting set up with a provider in [place]. GREYSON attempted to contact the [facility]. GREYSON left them a voicemail. The patient receives his medications at [facility] and he reports no difficulties obtaining his meds. The patient does not have advanced directives, but he was interested in obtaining a form for DPOA-HC. GREYSON provided. The patient states that he is not . He states that he has two daughters: Reyna Rene and Marnie Christine. Reyna lives in [place] and Marnie in [place]. The patient plans to return home with his friend upon discharge. GREYSON will attempt calling [facility] again.
--- NOTE | 2020-01-09 11:15 | NUR ---
Opal, at [facility], returned GREYSON's call. GREYSON provided Opal with the patient's information. Opal states that she will give this information to their meat cooler and then that RN will contact the patient to set up an appointment. GREYSON to inform the patient. No additional needs at this time.
[2020-01-09 13:04] LABS: BASO # 0.1 (0.0-0.2); BASO % 0.4 % (0.0-2.0); EOS # 0.2 (0.0-0.7); EOS % 2.1 % (0-4.0); GRAN # 7.1 (1.4-6.5); GRAN % 62.1 % (42.2-75.2); HEMATOCRIT 42.2 % (42.0-52.0); HEMOGLOBIN 14.1 g/dl (13.5-18.0); LYMPH % 25.8 % (20.0-51.0); MEAN CELL VOLUME 94 fl (80.0-100.0); MEAN CORPUSCULAR HEMOGLOBIN 32 pg (27.0-31.0); MEAN CORPUSCULAR HGB CONC 33 g/dl (33.0-37.0); MEAN PLATELET VOLUME 9.2 fl (7.4-10.4); MONO # 1.1 (0.1-0.6); MONO % 9.3 % (1.7-9.3); PLATELET COUNT 298 K/mm3 (130-400); RED BLOOD COUNT 4.47 M/mm3 (4.20-5.60); REDCELL DISTRIBUTION WIDTH-CV 13.3 % (11.5-14.5)
[2020-01-09 13:19] LABS: ALBUMIN 3.7 gm/dL (3.5-5.0); BILIRUBIN,TOTAL 0.6 mg/dL (0.0-1.0); CALCIUM 8.3 mg/dL (8.4-10.2); CREATININE, serum 0.85 (0.66-1.25); POTASSIUM 4.1 mmol/L (3.4-5.0)
--- NOTE | 2020-01-10 00:56 | NUR ---
Patient has rested well so far tonight. PRN pain medication given per orders. IVF continue to right wrist. Patient is now NPO. HS medications given with no issues. Utilizes urinal for urination. IV antibiotics administered as ordered. Patient denies any further needs. Will continue to monitor.
[2020-01-10 03:24] VITALS: BP 153/89; PULSE 71; TEMP 98.7
[2020-01-10 08:14] LABS: BASO % 0.2 % (0.0-2.0); EOS # 0.2 (0.0-0.7); GRAN # 8.2 (1.4-6.5); GRAN % 67.4 % (42.2-75.2); HEMATOCRIT 44.8 % (42.0-52.0); LYMPH # 2.6 (1.2-3.4); LYMPH % 21.4 % (20.0-51.0); MEAN CELL VOLUME 94 fl (80.0-100.0); MEAN CORPUSCULAR HEMOGLOBIN 31 pg (27.0-31.0); MEAN CORPUSCULAR HGB CONC 34 g/dl (33.0-37.0); MEAN PLATELET VOLUME 9.1 fl (7.4-10.4); MONO # 1.1 (0.1-0.6); MONO % 8.8 % (1.7-9.3); PLATELET COUNT 310 K/mm3 (130-400); RED BLOOD COUNT 4.77 M/mm3 (4.20-5.60); REDCELL DISTRIBUTION WIDTH-CV 13.2 % (11.5-14.5)
[2020-01-10 08:20] LABS: ALBUMIN 4.2 gm/dL (3.5-5.0); BILIRUBIN,TOTAL 0.6 mg/dL (0.0-1.0); CALCIUM 9.2 mg/dL (8.4-10.2); CREATININE, serum 0.98 (0.66-1.25); POTASSIUM 4.3 mmol/L (3.4-5.0); TOTAL PROTEIN 7.7 gm/dL (6.4-8.2)
[2020-01-10 08:21] VITALS: BP 159/86; PULSE 72; TEMP 97
--- NOTE | 2020-01-10 11:00 | NUR ---
Patient has been resting since getting back from his scan. He is wanting to eat, explained have to wait for Dr Rivera to come see him. Patient is resting comfortably after getting dilauded. No complaints of nausea. He is having good urine output. No other changes at this time. Call light within reach.
[2020-01-10 11:58] VITALS: BP 118/71; BP 156/84; PULSE 66; PULSE 84; TEMP 97.4; TEMP 97.9
[2020-01-10] MEDS ORDERED: NORCO 325 MG-51 TAB PO (15:21)
[2020-01-10] MEDS ORDERED: AMOXICILLIN 8751 TAB PO (15:22)
[2020-01-10 16:00] VITALS: BP 149/72; PULSE 72; TEMP 97.4
[2020-01-10 18:16] VITALS: BP 148/72; PULSE 72; TEMP 97.4
--- NOTE | 2020-01-10 18:45 | NUR ---
Patient is discharging tonight. He will return Tuesday for surgery. No complaints of nausea. [place] given for pain. Explained office will call him with the plan for surgery. No other changes at this time.
--- NOTE | 2020-01-10 20:27 | NUR ---
Patient sent home with discharge instructions, personal belongings, and paper prescription. All questions answered. Patient ambulated to his ride's vehicle at 2019.
== END 2020-01-10 20:29 | disposition home or self-care (01) ==
LOC: COL.ER 22:15 → SURG 01-09 00:48
PROVIDERS: Emergency Medicine; ADMIT Surgery
DX: R10.9 Unspecified abdominal pain (principal); I25.10 Atherosclerotic heart disease of native coronary artery without angina pectoris; F17.210 Nicotine dependence, cigarettes, uncomplicated; Z88.5 Allergy status to narcotic agent; Z79.02 Long term (current) use of antithrombotics/antiplatelets
CPT/HCPCS: A9284; A9537; C9113; G0378; J1170; J2405; J2543; J3010; J7030; Q9967

== ENCOUNTER 2020-01-15 08:42 | Observation (INO) | payer MEDICAID ==
[~2020-01-15] VITALS: Ht 167.6 cm; Wt 81.7 kg
[~2020-01-15 08:42] MED LIST changes: +NORCO 325 MG-51 TAB PO
[2020-01-15 09:27] VITALS: BP 136/80; PULSE 99; TEMP 97.9
[2020-01-15 10:38] LABS: TRICYCLIC ANTIDEPRESS URINE NEGATIVE
[2020-01-15] MEDS ORDERED: PLAVIX 75MG TAB75 MG PO (13:20)
[2020-01-15] MEDS ORDERED: AMOXICILLIN 50500 MG PO (13:23)
[2020-01-15 16:44] VITALS: BP 168/84; PULSE 76; TEMP 97.7
[2020-01-15 19:52] VITALS: BP 133/84; PULSE 74; TEMP 98.3
[2020-01-15 23:27] VITALS: BP 167/90; PULSE 73; TEMP 98
[2020-01-16 03:51] VITALS: BP 158/94; PULSE 76; TEMP 97.6
[2020-01-16 07:39] VITALS: BP 122/84; PULSE 73; TEMP 98.7
[2020-01-16 07:41] LABS: BASO # 0.1 (0.0-0.2); BASO % 0.5 % (0.0-2.0); EOS # 0.4 (0.0-0.7); EOS % 3.6 % (0-4.0); GRAN # 5.6 (1.4-6.5); GRAN % 53.4 % (42.2-75.2); HEMATOCRIT 40.2 % (42.0-52.0); HEMOGLOBIN 13.5 g/dl (13.5-18.0); LYMPH # 3.4 (1.2-3.4); LYMPH % 32.3 % (20.0-51.0); MEAN CELL VOLUME 94 fl (80.0-100.0); MEAN CORPUSCULAR HEMOGLOBIN 32 pg (27.0-31.0); MEAN CORPUSCULAR HGB CONC 34 g/dl (33.0-37.0); MEAN PLATELET VOLUME 9.1 fl (7.4-10.4); MONO % 9.9 % (1.7-9.3); PLATELET COUNT 387 K/mm3 (130-400); RED BLOOD COUNT 4.26 M/mm3 (4.20-5.60); REDCELL DISTRIBUTION WIDTH-CV 13.2 % (11.5-14.5)
[2020-01-16 07:51] LABS: ALBUMIN 3.8 gm/dL (3.5-5.0); BILIRUBIN,TOTAL 0.6 mg/dL (0.0-1.0); CALCIUM 9.2 mg/dL (8.4-10.2); CREATININE, serum 0.78 (0.66-1.25); POTASSIUM 4.1 mmol/L (3.4-5.0); TOTAL PROTEIN 7.3 gm/dL (6.4-8.2)
[2020-01-16 11:42] VITALS: BP 129/65; PULSE 62; TEMP 98
[2020-01-16 15:47] VITALS: BP 125/78; PULSE 65; TEMP 98.4
[2020-01-16 19:47] VITALS: BP 134/74; PULSE 62; TEMP 97.9
[2020-01-16 23:35] VITALS: BP 138/71; PULSE 73; TEMP 98
[2020-01-17] VITALS (8 sets, daily range): BP systolic 141–164; BP diastolic 79–89; PULSE 64–98; TEMP 97.7–98
[2020-01-17 07:43] LABS: BASO # 0.1 (0.0-0.2); BASO % 0.4 % (0.0-2.0); EOS # 0.4 (0.0-0.7); EOS % 3.3 % (0-4.0); GRAN # 6.7 (1.4-6.5); GRAN % 59.4 % (42.2-75.2); HEMATOCRIT 38.6 % (42.0-52.0); HEMOGLOBIN 12.9 g/dl (13.5-18.0); LYMPH # 3.1 (1.2-3.4); LYMPH % 27.2 % (20.0-51.0); MEAN CELL VOLUME 94 fl (80.0-100.0); MEAN CORPUSCULAR HEMOGLOBIN 31 pg (27.0-31.0); MEAN CORPUSCULAR HGB CONC 33 g/dl (33.0-37.0); MEAN PLATELET VOLUME 9.1 fl (7.4-10.4); MONO # 1.1 (0.1-0.6); MONO % 9.3 % (1.7-9.3); PLATELET COUNT 375 K/mm3 (130-400); RED BLOOD COUNT 4.12 M/mm3 (4.20-5.60); REDCELL DISTRIBUTION WIDTH-CV 12.9 % (11.5-14.5)
[2020-01-17 08:02] LABS: ALBUMIN 3.7 gm/dL (3.5-5.0); BILIRUBIN,TOTAL 0.3 mg/dL (0.0-1.0); CALCIUM 9.2 mg/dL (8.4-10.2); CREATININE, serum 0.89 (0.66-1.25); POTASSIUM 4.1 mmol/L (3.4-5.0); TOTAL PROTEIN 6.9 gm/dL (6.4-8.2)
[2020-01-17] MEDS ORDERED: MOTRIN 600600 MG/TAB PO (15:30)
[2020-01-17] MEDS ORDERED: NORCO 325 MG-7.1 TAB PO (15:30)
[2020-01-17] MEDS ORDERED: AMOXICILLIN 50500 MG PO (15:31)
== END 2020-01-17 18:45 | disposition home or self-care (01) ==
LOC: SDCO 08:42 → SURG 12:52
PROVIDERS: Registered Nurse; ADMIT Surgery
DX: K80.12 Calculus of gallbladder with acute and chronic cholecystitis without obstruction (principal); I25.10 Atherosclerotic heart disease of native coronary artery without angina pectoris; I11.0 Hypertensive heart disease with heart failure; I50.9 Heart failure, unspecified; J44.9 Chronic obstructive pulmonary disease, unspecified; K21.9 Gastro-esophageal reflux disease without esophagitis; E78.5 Hyperlipidemia, unspecified; B19.20 Unspecified viral hepatitis C without hepatic coma; I34.1 Nonrheumatic mitral (valve) prolapse; I25.2 Old myocardial infarction; G89.29 Other chronic pain; F41.9 Anxiety disorder, unspecified; F32.9 Major depressive disorder, single episode, unspecified; Z79.01 Long term (current) use of anticoagulants; Z95.5 Presence of coronary angioplasty implant and graft; Z79.82 Long term (current) use of aspirin; Z88.5 Allergy status to narcotic agent
CPT/HCPCS: A9284; G0378; J0690; J0692; J1100; J1885; J2250; J2370; J2405; J3010; J7050; J7120

== ENCOUNTER 2020-03-24 10:39 | Emergency (ER) | payer MEDICAID ==
[~2020-03-24] VITALS: Ht 167.6 cm; Wt 75.0 kg
[~2020-03-24 10:39] MED LIST changes: +AMOXICILLIN 50500 MG PO; +MOTRIN 600600 MG/TAB PO; +NORCO 325 MG-7.1 TAB PO
[2020-03-24 10:48] VITALS: TEMP 98.4
[2020-03-24 11:31] LABS: BASO % 0.3 % (0.0-2.0); EOS # 0.2 (0.0-0.7); EOS % 1.7 % (0-4.0); GRAN % 63.5 % (42.2-75.2); HEMATOCRIT 43.3 % (42.0-52.0); HEMOGLOBIN 14.7 g/dl (13.5-18.0); LYMPH # 2.9 (1.2-3.4); MEAN CELL VOLUME 95 fl (80.0-100.0); MEAN CORPUSCULAR HEMOGLOBIN 32 pg (27.0-31.0); MEAN CORPUSCULAR HGB CONC 34 g/dl (33.0-37.0); MEAN PLATELET VOLUME 9.3 fl (7.4-10.4); MONO # 0.9 (0.1-0.6); MONO % 8.3 % (1.7-9.3); PLATELET COUNT 398 K/mm3 (130-400); RED BLOOD COUNT 4.56 M/mm3 (4.20-5.60); REDCELL DISTRIBUTION WIDTH-CV 13.4 % (11.5-14.5)
[2020-03-24 11:36] LABS: ALBUMIN 4.4 gm/dL (3.5-5.0); BILIRUBIN,TOTAL 0.7 mg/dL (0.0-1.0); C-REACTIVE PROTEIN 1.2 mg/dL (0.0-0.9); CALCIUM 9.6 mg/dL (8.4-10.2); CREATININE, serum 1.02 (0.66-1.25); POTASSIUM 4.1 mmol/L (3.4-5.0); TOTAL PROTEIN 7.8 gm/dL (6.4-8.2)
[2020-03-24] MEDS ORDERED: NORCO 325 MG-51 TAB PO (12:55)
[2020-03-24 13:04] VITALS: BP 113/87; PULSE 96
== END 2020-03-24 13:05 | disposition home or self-care (01) ==
LOC: COL.ER 10:39
PROVIDERS: Family Medicine
DX: S22.42XA Multiple fractures of ribs, left side, initial encounter for closed fracture (principal); I25.10 Atherosclerotic heart disease of native coronary artery without angina pectoris; Z90.49 Acquired absence of other specified parts of digestive tract; Z88.6 Allergy status to analgesic agent; Z79.82 Long term (current) use of aspirin; Z79.02 Long term (current) use of antithrombotics/antiplatelets; W11.XXXA Fall on and from ladder, initial encounter; Y92.009 Unspecified place in unspecified non-institutional (private) residence as the place of occurrence of the external cause
CPT/HCPCS: J1170; J2405; J7120; Q9967

== ENCOUNTER 2021-05-26 20:55 | Emergency (ER) | payer MEDICAID ==
[~2021-05-26] VITALS: Ht 167.6 cm; Wt 81.8 kg
[2021-05-26 21:04] VITALS: TEMP 96.4
[2021-05-26 21:31] LABS: BASO % 0.3 % (0.0-2.0); EOS # 0.2 K/mm3 (0.0-0.7); EOS % 1.7 % (0.0-4.0); GRAN # 6.7 K/mm3 (1.4-6.5); GRAN % 57.6 % (42.2-75.2); HEMATOCRIT 44.8 % (42.0-52.0); HEMOGLOBIN 15.2 g/dl (13.5-18.0); LYMPH # 3.6 K/mm3 (1.2-3.4); MEAN CELL VOLUME 93 fl (80.0-100.0); MEAN CORPUSCULAR HEMOGLOBIN 31 pg (27-31); MEAN CORPUSCULAR HGB CONC 34 g/dl (33.0-37.0); MONO # 1.1 K/mm3 (0.1-0.6); MONO % 9.2 % (1.7-9.3); PLATELET COUNT 370 K/mm3 (130-400); RED BLOOD COUNT 4.84 M/mm3 (4.20-5.60); REDCELL DISTRIBUTION WIDTH-CV 13.5 % (11.5-14.5)
[2021-05-26 21:59] LABS: ALANINE AMINOTRANSFERASE 33 U/L (0-55); ALBUMIN 3.9 gm/dL (3.5-5.0); ALKALINE PHOSPHATASE 103 U/L (40-150); ANION GAP 11 mmol/L (7-16); AST,SGOT 20 U/L (5-34); BILIRUBIN,TOTAL 0.4 mg/dL (0.2-1.2); BLOOD UREA NITROGEN 21 mg/dL (8-26); CALCIUM 9.3 mg/dL (8.4-10.2); CARBON DIOXIDE 24 mmol/L (22-29); CHLORIDE 103 mmol/L (98-107); CREATININE, serum 1.24 mg/dL (0.72-1.25); GLUCOSE 139 mg/dL (70-99); POTASSIUM 4.1 mmol/L (3.5-4.5); SODIUM 138 mmol/L (136-145); TOTAL PROTEIN 7.9 gm/dL (6.2-8.1)
[2021-05-26 23:03] LABS: TROPONIN-I < 0.010 ng/mL (0.00-0.033)
[2021-05-27 02:19] VITALS: BP 135/82; PULSE 78
== END 2021-05-27 02:19 | disposition home or self-care (01) ==
LOC: COL.ER 20:55
PROVIDERS: Emergency Medicine
DX: R07.89 Other chest pain (principal); I10 Essential (primary) hypertension; I25.10 Atherosclerotic heart disease of native coronary artery without angina pectoris; I25.2 Old myocardial infarction; F41.9 Anxiety disorder, unspecified; F17.200 Nicotine dependence, unspecified, uncomplicated; Z95.5 Presence of coronary angioplasty implant and graft; Z79.02 Long term (current) use of antithrombotics/antiplatelets; Z79.82 Long term (current) use of aspirin; Z79.899 Other long term (current) drug therapy
CPT/HCPCS: J7030

== ENCOUNTER → 2021-11-25 | Outpatient (CLI) | payer MEDICAID | LOC: COL.RAD 11:06 | DX: R05.1 Acute cough (principal); R06.89 Other abnormalities of breathing ==